=== PATIENT | female | born 1980 | race African-American/Black ===

== ENCOUNTER 2018-02-18 16:25 | Emergency (ER) | payer MEDICAID ==
[~2018-02-18] VITALS: Ht 160 cm; Wt 62.1 kg
[2018-02-18 17:13] VITALS: BP 123/79
--- NOTE | 2018-02-18 17:21 | Emergency Room Report ---
History of Present Illness General Chief Complaint: Sore Throat Source: Patient Present Illness HPI 37-year-old female presents emergency department complaining of 5/10 in severity sore throat, cough and subjective fevers and chills 3 days. Patient reports mother is an ill contact with similar symptoms. Patient denies taking medications for her symptoms. Denies ear pain, high fevers, lethargy, neck pain/ stiffness, irritability, photophobia dehydration, N/V/D. Denies Cp, Palpitations , LOC, AMS, seizures, paresthesias, or changes in Hearing or vision, no Sudden severe MARTINEZ. History of present illness and ROS is limited due to patient being deaf and encounter was communicated with writting. Allergies: Coded Allergies: No Known Allergies (Unverified , 02/18/18) Patient History Past Medical History: see triage record Past Surgical History: none Pertinent Family History: none Last Menstrual Period: 02/05/18 Immunizations: UTD Reviewed Nursing Documentation: PMH: Agreed; PSxH: Agreed Nursing Documentation-PMH Past Medical History: No Stated History Review of Systems All Other Systems: negative except mentioned in HPI Physical Exam Vital Signs Date Time Temp Pulse Resp B/P (MAP) Pulse Ox O2 Delivery O2 Flow Rate FiO2 02/18/18 16:31 98.0 96 18 129/87 99 Room Air 98.1 Sp02 EP Interpretation: reviewed, normal General Appearance: no apparent distress, alert, GCS 15, non-toxic Head: normocephalic, atraumatic Eyes: bilateral eye normal inspection, bilateral eye PERRL ENT: normal pharynx, normal voice, TMs + canals normal, uvula midline, moist mucus membranes, nasal congestion, other - Pt. is deaf Neck: full range of motion, no bony tend Respiratory: chest non-tender, lungs clear, normal breath sounds, no respiratory distress, no wheezing, speaking full sentences Cardiovascular #1: regular rate, rhythm Musculoskeletal: back normal, gait/station normal, normal range of motion, non- tender Neurologic: alert, oriented x3, responsive, motor strength/tone normal, sensory intact, normal gait, speech normal, grossly normal Psychiatric: judgement/insight normal Skin: normal color, no rash, warm/dry, well hydrated Lymphatic: no adenopathy Medical Decision Making PA Attestation Dr. Coe is my supervising Physician whom patient management has been discussed with. Diagnostic Impression: Primary Impression: Upper respiratory infection, viral ER Course 37-year-old female presents emergency department complaining of 5/10 in severity sore throat, cough and subjective fevers and chills 3 days. Patient reports mother is an ill contact with similar symptoms. Patient denies taking medications for her symptoms. Denies ear pain, high fevers, lethargy, neck pain/ stiffness, irritability, photophobia dehydration, N/V/D. Denies Cp, Palpitations , LOC, AMS, seizures, paresthesias, or changes in Hearing or vision, no Sudden severe MARTINEZ. History of present illness and ROS is limited due to patient being deaf and encounter was communicated with writting. Ddx considered but are not limited to URI, pneumonia, PE, strep pharyngitis, meningitis. Vital signs: Pt. is afebrile, the remaining VS are WNL H&PE are most consistent with URI- no meningeal signs, oropharynx is not involved, no evidence of bacterial infection at this time. ORDERS: none required at this time, the diagnosis is clinical ED INTERVENTIONS: None required at this time. DISCHARGE: At this time pt. is stable for d/c to home. Will provide printed patient care instructions, and any necessary prescriptions. Care plan and follow up instructions have been discussed with the patient prior to discharge. Last Vital Signs Date Time Temp Pulse Resp B/P (MAP) Pulse Ox O2 Delivery O2 Flow Rate FiO2 02/18/18 17:13 98.1 76 18 123/79 99 Room Air 98.1 Disposition: HOME, SELF-CARE Condition: Stable Scripts Acetaminophen* (TYLENOL EXTRA STRENGTH*) 500 Mg Tablet 500 MG ORAL Q6H, #20 TAB 0 Refills Prov: Jessie Velazquez P.A. 02/18/18 Guaifenesin (Guaifenesin) 1,200 Mg Tab.er.12h 1200 MG PO BID for 10 Days, #20 TAB Prov: Jessie Velazquez P.A. 02/18/18 Codeine/Promethazine Hcl* (PROMETHAZINE-CODEINE SYRUP*) 118 Ml Syrup 5 ML ORAL Q6H PRN for For Cough, #120 ML 0 Refills Prov: Jessie Velazquez P.A. 02/18/18 Patient Instructions: Sore Throat, Upper Respiratory Infection, Adult, Easy-to- Read Additional Instructions: Take medications as directed. Follow up with a Primary Care Provider in 3-5 days, even if your symptoms have resolved. --Please review list of primary care clinics, if you do not already have a primary care provider Return sooner to ED if new symptoms occur, or current symptoms become worse. Do not drink alcohol, drive, or operate heavy machinery while taking Cough Syrup as this may cause drowsiness. - Please note that this Emergency Department Report was dictated using [employer] house worker technology software, occasionally this can lead to erroneous entry secondary to interpretation by the dictation equipment. Jessie Velazquez Feb 18, 2018 17:21
[2018-02-18] MEDS ORDERED: PROMETHAZINE-C118 M1 ORAL (17:22)
[2018-02-18] MEDS ORDERED: TYLENOL EXTRA500 MG ORAL (17:22)
[2018-02-18] MEDS ORDERED: GUAIFENESIN1200 MG PO (17:22)
[2018-02-18 17:58] VITALS: BP 121/77
== END 2018-02-18 18:00 | disposition home or self-care (01) ==
LOC: EMR 17:55
DX: J06.9 Acute upper respiratory infection, unspecified (principal); B34.9 Viral infection, unspecified
CPT/HCPCS: 99284

== ENCOUNTER 2018-10-15 11:00 | Emergency (ER) | payer MEDICAID ==
[~2018-10-15] VITALS: Ht 162.6 cm; Wt 61.2 kg
[~2018-10-15 11:00] MED LIST: GUAIFENESIN1200 MG PO; PROMETHAZINE-C118 M1 ORAL; TYLENOL EXTRA500 MG ORAL
[2018-10-15 11:05] VITALS: BP 116/68
[2018-10-15] MEDS ORDERED: DOXYCYCLINE HY100 M2 PO ×2 (11:06→11:17)
--- NOTE | 2018-10-15 11:30 | Emergency Room Report ---
History of Present Illness General Chief Complaint: Abdominal Pain Source: Patient Present Illness HPI Patient presents with complaint of some epigastric discomfort and some questionable constipation after starting an antibiotic doxycycline This was several days ago and the patient has had more discomfort since then Denies any vomiting or diarrhea and eyes any chest pain denies any flank pain Denies any dysuria frequency Patient reports that she is taking the antibiotic for a cyst in her vaginal area Please note history is obtained through notes on the computer/phone along with the patient's daughter who was able to sign Allergies: Coded Allergies: No Known Allergies (Unverified , 10/15/18) Patient History Past Medical History: see triage record Pertinent Family History: none Now: No Reviewed Nursing Documentation: PMH: Agreed; PSxH: Agreed Nursing Documentation-PMH Past Medical History: No Stated History Review of Systems All Other Systems: negative except mentioned in HPI Physical Exam Vital Signs Date Time Temp Pulse Resp B/P (MAP) Pulse Ox O2 Delivery O2 Flow Rate FiO2 10/15/18 11:01 97.7 80 20 116/68 100 Room Air Sp02 EP Interpretation: reviewed, normal General Appearance: well appearing, no apparent distress Head: normocephalic, atraumatic Eyes: bilateral eye PERRL, bilateral eye EOMI ENT: hearing grossly normal, normal pharynx, TMs + canals normal, uvula midline Neck: full range of motion, supple, no meningismus, no bony tend Respiratory: lungs clear, normal breath sounds, no rhonchi, no respiratory distress, no retraction, no accessory muscle use Cardiovascular #1: normal peripheral pulses, regular rate, rhythm, no edema, no gallop, no JVD, no murmur Gastrointestinal: normal bowel sounds, non tender - However subjectively points to epigastric area, soft, no mass, no organomegaly, non-distended, no guarding, no hernia, no pulsatile mass, no rebound Genitourinary: no CVA tenderness Neurologic: oriented x3, responsive, information technology professor III-XII nml as tested, motor strength/ tone normal, sensory intact Psychiatric: mood/affect normal Skin: normal color, no rash, warm/dry, palpation normal Lymphatic: normal inspection, no adenopathy Medical Decision Making ER Course With the patient's history and examination, multiple differentials considered, including but not limited to , ectopic , ovarian torsion, gastritis, cholecystitis, pancreatitis, appendicitis Patient's clinical exam however is fairly benign Soft abdomen Patient does not appear in acute distress there is some component of likely secondary reaction to antibiotics Patient also reports being constipated She will have initial conservative outpatient trial addressing these issues and will return with any concerns she is also highly recommended to follow up with her prescribing physician Last Vital Signs Date Time Temp Pulse Resp B/P (MAP) Pulse Ox O2 Delivery O2 Flow Rate FiO2 10/15/18 11:05 80 20 Room Air 10/15/18 11:05 97.7 116/68 100 Humphrey Coe DO Oct 15, 2018 11:30
[2018-10-15] MEDS ORDERED: MAALOX MAXIMUM355 M1 PO (11:36)
[2018-10-15] MEDS ORDERED: COLACE100 MG ORAL (11:36)
[2018-10-15 11:42] VITALS: BP 116/68
== END 2018-10-15 11:40 | disposition home or self-care (01) ==
LOC: EMR 11:23
DX: R10.13 Epigastric pain (principal); K59.00 Constipation, unspecified
CPT/HCPCS: 99282

== ENCOUNTER 2018-12-17 15:32 | Emergency (ER) | payer MEDICAID ==
[~2018-12-17] VITALS: Ht 160 cm; Wt 49.9 kg
[~2018-12-17 15:32] MED LIST changes: +COLACE100 MG ORAL; +DOXYCYCLINE HY100 M2 PO; +MAALOX MAXIMUM355 M1 PO
[2018-12-17] MEDS ORDERED: NKM (15:43)
--- NOTE | 2018-12-17 15:44 | NUR ---
ED Nurse Note: Pt came in from home due to coughing and bilateral earache x 3 weeks. Pt stated yellowish phlegm Pain 10/10 santana. Aox4, VSS. Will cont to monitor.
--- NOTE | 2018-12-17 16:02 | Emergency Room Report ---
History of Present Illness General Chief Complaint: Upper Respiratory Illness Source: Patient Present Illness HPI 38-year-old female presents to the emergency department complaining of persistent dry cough and nasal congestion 2 weeks. Patient denies fevers or chills she denies sputum production or shortness of breath.Denies sore throat, ear pain, high fevers, lethargy, neck pain/stiffness, irritability, photophobia dehydration, N/V/D. Denies Cp, Palpitations, LOC, AMS, seizures, paresthesias, or changes in Hearing or vision, no Sudden severe MARTINEZ. Denies hx of smoking, asthma or COPD. She did not receive this year's flu vaccination. Allergies: Coded Allergies: No Known Allergies (Unverified , 10/15/18) Patient History Past Medical History: see triage record, other - deaf Past Surgical History: none Pertinent Family History: none Last Menstrual Period: 12/11/18 Now: No Reviewed Nursing Documentation: PMH: Agreed; PSxH: Agreed Nursing Documentation-PMH Past Medical History: No Stated History Review of Systems All Other Systems: negative except mentioned in HPI Physical Exam Vital Signs Date Time Temp Pulse Resp B/P (MAP) Pulse Ox O2 Delivery O2 Flow Rate FiO2 12/17/18 15:35 97.9 84 16 111/45 98 Room Air Sp02 EP Interpretation: reviewed, normal General Appearance: no apparent distress, alert, GCS 15, non-toxic Head: normocephalic, atraumatic Eyes: bilateral eye normal inspection, bilateral eye PERRL ENT: hearing grossly normal, normal voice, uvula midline, moist mucus membranes , nasal congestion Neck: full range of motion Respiratory: chest non-tender, lungs clear, normal breath sounds, no wheezing, speaking full sentences Cardiovascular #1: regular rate, rhythm Musculoskeletal: back normal, gait/station normal, normal range of motion, non- tender Neurologic: alert, oriented x3, responsive, motor strength/tone normal, sensory intact, speech normal, grossly normal Psychiatric: judgement/insight normal Skin: normal color, no rash, warm/dry, well hydrated Lymphatic: no adenopathy Medical Decision Making PA Attestation Dr. mast is my supervising Physician whom patient management has been discussed with. Diagnostic Impression: Primary Impression: Viral upper respiratory tract infection with cough ER Course 38-year-old female presents to the emergency department complaining of persistent dry cough and nasal congestion 2 weeks. Patient denies fevers or chills she denies sputum production or shortness of breath.Denies sore throat, ear pain, high fevers, lethargy, neck pain/stiffness, irritability, photophobia dehydration, N/V/D. Denies Cp, Palpitations, LOC, AMS, seizures, paresthesias, or changes in Hearing or vision, no Sudden severe MARTINEZ. Denies hx of smoking, asthma or COPD. She did not receive this year's flu vaccination. Ddx considered but are not limited to URI, pneumonia, PE, strep pharyngitis, meningitis. Vital signs: Pt. is afebrile, the remaining VS are WNL H&PE are most consistent with URI- no meningeal signs, oropharynx is not involved, no evidence of bacterial infection at this time. ORDERS: none required at this time, the diagnosis is clinical ED INTERVENTIONS: None required at this time. --PT. EDUCATION: Discussed antibiotic resistance with inappropriate prescribing of antibiotics for viral illnesses. Discussed signs and symptoms to indicate viral illness versus bacterial illness. DISCHARGE: At this time pt. is stable for d/c to home. Will provide printed patient care instructions, and any necessary prescriptions. Care plan and follow up instructions have been discussed with the patient prior to discharge. Last Vital Signs Date Time Temp Pulse Resp B/P (MAP) Pulse Ox O2 Delivery O2 Flow Rate FiO2 12/17/18 15:45 84 16 Room Air 12/17/18 15:35 97.9 111/45 98 Disposition: HOME, SELF-CARE Condition: Stable Scripts Albuterol Sulfate* (ALBUTEROL SULFATE MDI*) 8.5 Gm Hfa.aer.ad 2 PUFF INH Q4H, #1 INH 0 Refills Prov: Jessie Velazquez 12/17/18 Cetirizine Hcl/Pseudoephedrine (ZYRTEC-D TABLET) 1 Each Tab.er.12h 1 EACH ORAL Q12HR for 10 Days, #20 TAB Prov: eJssie Velazquez 12/17/18 Oxymetazoline HCl (Afrin) 15 Ml Homer 2 SPRAYS NASAL TWICE A DAY for 3 Days, #30 SPRAY DO NOT USE FOR MORE THAN 3 CONSECUTIVE DAYS. Prov: Jessie Velazquez 12/17/18 Codeine/Promethazine Hcl* (PROMETHAZINE-CODEINE SYRUP*) 118 Ml Syrup 5 ML ORAL Q6H PRN for For Cough, #120 ML 0 Refills Prov: Jessie Velazquez 12/17/18 Departure Forms: Return to Work Return to Work Date: Dec 20, 2018 Work Restrictions: None Return to Full Activity: Dec 20, 2018 Patient Instructions: Upper Respiratory Infection, Adult Additional Instructions: Take medications as directed. Follow up with a Primary Care Provider in 3-5 days, even if your symptoms have resolved. --Please review list of primary care clinics, if you do not already have a primary care provider Return sooner to ED if new symptoms occur, or current symptoms become worse. Do not drink alcohol, drive, or operate heavy machinery while taking Cough Syrup as this may cause drowsiness. - Please note that this Emergency Department Report was dictated using [email or web address] carver technology software, occasionally this can lead to erroneous entry secondary to interpretation by the dictation equipment. Jessie Velazquez Dec 17, 2018 16:02
[2018-12-17 16:03] VITALS: BP 113/52
[2018-12-17] MEDS ORDERED: AFRIN NASAL SPR30 ML NASAL (16:04)
[2018-12-17] MEDS ORDERED: ZYRTEC-D TABLE1 EACH ORAL (16:04)
[2018-12-17] MEDS ORDERED: PROMETHAZINE-C118 M1 ORAL (16:04)
[2018-12-17] MEDS ORDERED: ALBUTEROL SULF8.5 GM INH (16:04)
[2018-12-17 16:08] VITALS: BP 113/52
--- NOTE | 2018-12-17 16:08 | NUR ---
ED Nurse Note: Patient is being discharged cleared by ER provider. discharge instruction with prescription given to the patient, patient verbalized understanding. patient a/o x4, ambulated out of Ed with steady gait, with all belongings. ID band removed.
== END 2018-12-17 16:30 | disposition home or self-care (01) ==
LOC: EMR 16:20
DX: J06.9 Acute upper respiratory infection, unspecified (principal); B34.9 Viral infection, unspecified
CPT/HCPCS: 99283

== ENCOUNTER 2019-12-24 22:09 | Emergency (ER) | payer MEDICAID ==
[~2019-12-24] VITALS: Ht 162.6 cm; Wt 66.2 kg
[~2019-12-24 22:09] MED LIST changes: +AFRIN NASAL SPR30 ML NASAL; +ALBUTEROL SULF8.5 GM INH; +NKM; +ZYRTEC-D TABLE1 EACH ORAL
[2019-12-24 22:35] VITALS: BP 110/72
--- NOTE | 2019-12-24 22:35 | NUR ---
ED Nurse Note: Patient walked in from home d/t painful dry cough x 1 month. Patient aao x 4 and ambulatory. Patient is deaf and mute, communicates through writing. Patient stable upon assessment.
--- NOTE | 2019-12-24 23:01 | NUR ---
ED Nurse Note: Xray at bedside
[2019-12-24] MEDS ORDERED: ZITHROMAX250 MG ORAL (23:16)
--- NOTE | 2019-12-24 23:16 | Emergency Room Report ---
History of Present Illness General Chief Complaint: Upper Respiratory Illness Source: Patient Present Illness HPI Is a 39-year-old female who is deaf. She presents with complaint of a cough. She said this been ongoing for a month. Nothing made it better. Nothing made it worse. Cough is dry. No fever or chills. No nausea no vomiting. Denies any trauma. Denies any weight loss or night sweats. She also complained of numbness to her right index finger. This been ongoing for months. Worse when she bends in certain way. Pain is mostly over the PIP joint. No trauma. Allergies: Coded Allergies: No Known Allergies (Unverified , 10/15/18) Patient History Past Medical History: see triage record, old chart reviewed Past Surgical History: none Pertinent Family History: none Social History: Denies: smoking Last Menstrual Period: 12/20/2019 Now: No Immunizations: other Reviewed Nursing Documentation: PMH: Agreed; PSxH: Agreed Review of Systems Eye: Denies: eye pain, blurred vision ENT: Denies: ear pain, nose congestion, throat swelling Respiratory: Reports: cough; Denies: shortness of breath Cardiovascular: Denies: chest pain, palpitations Gastrointestinal: Denies: abdominal pain, diarrhea, nausea, vomiting Musculoskeletal: Denies: back pain, joint pain Skin: Denies: rash Neurological: Denies: headache, numbness Endocrine: Denies: increased thirst, increased urine Hematologic/Lymphatic: Denies: easy bruising All Other Systems: negative except mentioned in HPI Physical Exam Vital Signs Date Time Temp Pulse Resp B/P (MAP) Pulse Ox O2 Delivery O2 Flow Rate FiO2 12/24/19 22:20 97.9 68 16 107/73 (84) 98 Room Air Vitals normal Sp02 EP Interpretation: reviewed, normal General Appearance: well appearing, no apparent distress, alert Head: normocephalic, atraumatic Eyes: bilateral eye PERRL, bilateral eye EOMI ENT: hearing grossly normal, normal pharynx Neck: full range of motion, supple, no meningismus Respiratory: chest non-tender, lungs clear, normal breath sounds Cardiovascular #1: regular rate, rhythm, no murmur Gastrointestinal: normal bowel sounds, non tender, no mass, no organomegaly, no bruit, non-distended Musculoskeletal: back normal, normal range of motion, gait/station normal, other - No deformity to right index finger. Full range of motion. Sensation normal Psychiatric: mood/affect normal Medical Decision Making Diagnostic Impression: Primary Impression: Cough ER Course Patient with a persistent cough. No wheezing. Could be cough-induced asthma. Because been going on for a month, will put her on antibiotics. No evidence of any PE, dissection, ACS to name a few. Chest X-Ray Diagnostic Results Chest X-Ray Diagnostic Results : Chest X-Ray Ordered: Yes # of Views/Limited/Complete: 1 View Indication: Shortness of Breath EP Interpretation: Yes Interpretation: no consolidation, no effusion, no pneumothorax, no acute cardiopulmonary disease Impression: No acute disease Electronically Signed by: Jeffrey Bedolla MD Last Vital Signs Date Time Temp Pulse Resp B/P (MAP) Pulse Ox O2 Delivery O2 Flow Rate FiO2 12/24/19 22:35 72 18 Room Air 12/24/19 22:35 97.9 110/72 97 Status: unchanged Disposition: HOME, SELF-CARE Condition: Stable Scripts Azithromycin* (ZITHROMAX*) 250 Mg Tablet 250 MG ORAL DAILY, #6 TAB 0 Refills Take two tables once daily for 1 day, then one tablet once daily for 4 days. Prov: Jeffrey Bedolla MD 12/24/19 Referrals: [facility],REFERRING (PCP) Additional Instructions: Follow-up with your doctor in 7 days. Return if symptoms worsen. Jeffrey Bedolla MD Dec 24, 2019 23:16
[2019-12-24] MEDS ORDERED: TESSALON PERLE100 MG ORAL (23:18)
--- NOTE | 2019-12-24 23:22 | Diagnostic Imaging Report ---
EXAM: XR Chest, 1 View CLINICAL HISTORY: COUGH TECHNIQUE: Frontal view of the chest. COMPARISON: No relevant prior studies available. FINDINGS: Lungs: Unremarkable. No consolidation. Pleural space: Unremarkable. No pneumothorax. Heart: Unremarkable. No cardiomegaly. Mediastinum: Unremarkable. Bones/joints: Unremarkable. IMPRESSION: Normal chest.
[2019-12-24 23:25] VITALS: BP 115/82
--- NOTE | 2019-12-24 23:25 | NUR ---
ER DISCHARGE NOTE: Patient is cleared to be discharged per ERMD, pt is aox4, on room air, with stable vital signs. pt was given dc and prescription instructions, pt was able to verbalize understanding, pt id band removed. pt is able to ambulate with steady gait. pt took all belongings. pt stable upon discharge.
== END 2019-12-24 23:25 | disposition home or self-care (01) ==
LOC: EMR 22:47
DX: R05 Cough (principal); R20.2 Paresthesia of skin; H91.90 Unspecified hearing loss, unspecified ear
CPT/HCPCS: 71045; Z7502; 99283

== ENCOUNTER 2020-02-27 19:43 | Emergency (ER) | payer MEDICAID ==
[~2020-02-27] VITALS: Ht 157.5 cm; Wt 66.2 kg
[~2020-02-27 19:43] MED LIST changes: +TESSALON PERLE100 MG ORAL; +ZITHROMAX250 MG ORAL
[2020-02-27 19:48] VITALS: BP 111/69
--- NOTE | 2020-02-27 19:55 | NUR ---
ED Nurse Note: patient walked into ED from home c/o being constipated and hemorrhoids, reports "my intestines came out and I had to put it back in." patient is unable to hear, able to use sign languages, able to write down in sentences. patient is alert awake ambulatory steady gait, in no acute distress.
[2020-02-27] MEDS ORDERED: COLACE100 MG ORAL (20:07)
[2020-02-27] MEDS ORDERED: ANUSOL-HC25 MG RECTAL (20:07)
--- NOTE | 2020-02-27 20:12 | NUR ---
ER DISCHARGE NOTE: Patient is cleared to be discharged per ERMFrank MCGREGOR, pt is aox4, on room air, with stable vital signs. pt was given dc and prescription instructions, Lesly admitting staff was able to use sign language. RN also explained medications through writing. pt was able to express understanding, pt id band removed without complications. pt is able to ambulate with steady gait. pt took all belongings.
[2020-02-27 20:13] VITALS: BP 111/69
--- NOTE | 2020-02-27 20:29 | Emergency Room Report ---
History of Present Illness General Chief Complaint: General Complaint Source: Patient Present Illness HPI 39-year-old female presents to ED for evaluation. States that she is constipated for the last few days. States that she may have hemorrhoids. Notes has hard small stools. Denies any rectal bleeding. Denies any pain. Denies any fevers or chills. Denies nausea or vomiting. Has been here previously for constipation in the past. No other aggravating relieving factors. Denies any other associated symptoms Allergies: Coded Allergies: No Known Allergies (Unverified , 10/15/18) COVID-19 Screening Contact w/high risk pt: No Recent Travel to affected area: No Experienced COVID-19 symptoms?: No Patient History Past Medical History: other - deaf Past Surgical History: none Pertinent Family History: none Now: No Immunizations: UTD Reviewed Nursing Documentation: PMH: Agreed; PSxH: Agreed Nursing Documentation-PM Past Medical History: No History, Except For Review of Systems All Other Systems: negative except mentioned in HPI Physical Exam Vital Signs Date Time Temp Pulse Resp B/P (MAP) Pulse Ox O2 Delivery O2 Flow Rate FiO2 02/27/20 19:48 97.3 90 18 111/69 (83) 99 Room Air Sp02 EP Interpretation: reviewed, normal General Appearance: no apparent distress, alert, GCS 15, non-toxic Head: normocephalic, atraumatic Eyes: bilateral eye normal inspection, bilateral eye PERRL ENT: normal pharynx, no angioedema, normal voice, other - deaf Neck: full range of motion, supple/symm/no masses Respiratory: chest non-tender, lungs clear, normal breath sounds, speaking full sentences Cardiovascular #1: regular rate, rhythm, no edema Cardiovascular #2: 2+ carotid (R), 2+ carotid (L), 2+ radial (R), 2+ radial (L) , 2+ dorsalis pedis (R), 2+ dorsalis pedis (L) Gastrointestinal: normal bowel sounds, non tender, soft, non-distended, no guarding, no rebound Rectal: other - mail sorter present. no rectal bleeding. no pain on exam Genitourinary: normal inspection, no CVA tenderness Musculoskeletal: back normal, normal range of motion, gait/station normal, non- tender Neurologic: alert, motor strength/tone normal, oriented x3, sensory intact, responsive, speech normal Psychiatric: judgement/insight normal, memory normal, mood/affect normal, no suicidal/homicidal ideation Reflexes: 3+ bicep (R), 3+ bicep (L), 3+ tricep (R), 3+ tricep (L), 3+ knee (R) , 3+ knee (L) Lymphatic: no adenopathy Medical Decision Making Diagnostic Impression: Primary Impression: Hemorrhoids Qualified Codes: K64.9 - Unspecified hemorrhoids Additional Impression: Constipation Qualified Codes: K59.00 - Constipation, unspecified ER Course Hospital Course 39 yo F presents with constipation, possible hemorrhoids Differential diagnoses include: internal hemorrhoids, external hemorrhoids, anal fissure, constipation Clinical course Patient placed on stretcher in ED. and is deaf. Interpretation provided by staff in sign language. After initial history physical exam reveals a young female in no acute distress. mail sorter present. rectal exam there is good rectal tone. No gross blood. Some discomfort. I discussed findings with patient using sales exec. Consideration for internal hemorrhoids. Constipation. Will discharge with suppository and stool softener. Patient states she understands discharge planning. Safe for discharge for close outpatient follow-up Diagnosis - constipation, hemorrhoids Stable and discharged to home with prescription for Anusol suppository, Colace. Instructed to take warm soaks. Patient instructed to followup with PMD. Patient instructed to return to ED if symptoms recur or worsen Last Vital Signs Date Time Temp Pulse Resp B/P (MAP) Pulse Ox O2 Delivery O2 Flow Rate FiO2 02/27/20 20:13 97.3 18 111/69 99 Room Air 02/27/20 20:04 90 Status: improved Disposition: HOME, SELF-CARE Condition: Stable Scripts Docusate Sodium* (COLACE*) 100 Mg Capsule 100 MG ORAL THREE TIMES A DAY, #30 CAP Prov: Michael Lainez MD 02/27/20 Hydrocortisone Acetate* (ANUSOL-HC*) 25 Mg Supp.rect 1 SUPP RECTAL TWICE A DAY for 5 Days, SUPP Prov: Michael Lainez MD 02/27/20 Referrals: NON PHYSICIAN (PCP) [facility] Patient Instructions: Constipation, Adult, [id number], Hemorrhoids, Easy-to- Read Michael Lainez MD Feb 27, 2020 20:29
== END 2020-02-27 20:12 | disposition home or self-care (01) ==
LOC: EMR 20:02
DX: K59.00 Constipation, unspecified (principal); K64.9 Unspecified hemorrhoids; H91.3 Deaf nonspeaking, not elsewhere classified
CPT/HCPCS: 99283

== ENCOUNTER 2021-01-15 15:21 | Emergency (ER) | payer MEDICAID ==
[~2021-01-15] VITALS: Ht 162.6 cm; Wt 68.0 kg
[~2021-01-15 15:21] MED LIST changes: +ANUSOL-HC25 MG RECTAL; +BACTRIM DS TAB1 EAC1 ORAL; +CEPHALEXIN500 MG ORAL; +PHENAZOPYRIDIN200 MG ORAL
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
[2021-01-15 17:54] LABS: EOSINOPHILS % (AUTO) 1.2 % (0.0-3.0); HEMATOCRIT 35.5 % (37.0-47.0); HEMOGLOBIN 11.7 G/DL (12.0-16.0); LYMPHOCYTES % (AUTO) 33.7 % (20.0-45.0); MEAN CORPUSCULAR VOLUME 76 FL (80-99); MONOCYTES % (AUTO) 7.4 % (1.0-10.0); NEUTROPHILS % (AUTO) 55.7 % (45.0-75.0); PLATELET COUNT 214 K/UL (150-450); RED BLOOD COUNT 4.67 M/UL (4.20-5.40); WHITE BLOOD COUNT 7.7 K/UL (4.8-10.8)
[2021-01-15 17:57] LABS: APPEARANCE,URINE SLIGHTLY CLOUDY; BILIRUBIN, URINE NEGATIVE (NEGATIVE); COLOR,URINE PALE YELLOW; GLUCOSE, URINE (UA) NEGATIVE (NEGATIVE); KETONES,URINE NEGATIVE (NEGATIVE); LEUKOCYTE ESTERASE ,URINE 2+ (NEGATIVE); NITRITE,URINE NEGATIVE (NEGATIVE); PH,URINE 5 (4.5-8.0); PROTEIN,URINE NEGATIVE (NEGATIVE); UROBILINOGEN,URINE NORMAL MG/DL (0.0-1.0)
[2021-01-15 18:11] LABS: ANION GAP 10 mmol/L (5-15); BLOOD UREA NITROGEN 8 mg/dL (7-18); CALCIUM 9.5 MG/DL (8.5-10.1); CARBON DIOXIDE 25 MMOL/L (21-32); CHLORIDE 103 MMOL/L (98-107); CREATININE 0.9 MG/DL (0.55-1.30); POTASSIUM 3.5 MMOL/L (3.5-5.1); SODIUM 138 MMOL/L (136-145)
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
--- NOTE | 2021-01-15 18:14 | NUR ---
Started IV for patient for lab draw and CT. Patient pulled the IV out - signing that she did not not want the IV in her hand. reported the event to the MD, who in turned spoke to her via lang interpreter to make her aware that the IV was needed. Another IV- 20G place to RAC.
[2021-01-15 18:16] LABS: ALANINE AMINOTRANSFERASE 22 U/L (12-78); ALBUMIN 3.8 G/DL (3.4-5.0); ALBUMIN/GLOBULIN RATIO 0.9 (1.0-2.7); ALKALINE PHOSPHATASE 80 U/L (46-116); ASPARTATE AMINO TRANSFERASE 16 U/L (15-37); BILIRUBIN,TOTAL 0.2 MG/DL (0.2-1.0)
[2021-01-15 19:23] VITALS: BP 130/70
== END 2021-01-15 19:30 | disposition left against medical advice (07) ==
LOC: EMR 17:15
DX: R10.9 Unspecified abdominal pain (principal); M54.9 Dorsalgia, unspecified
CPT/HCPCS: 36415; 80053; 81003; 81025; 83690; 85025; Z7502; 99284